=== PATIENT | male | born 1970 | race Caucasian/White ===

== ENCOUNTER 2024-05-20 16:56 | Inpatient (IN) | payer OTHER ==
[2024-05-20 17:22] VITALS: BMI 21.9
[2024-05-20] MEDS ORDERED: MAGNESIUM HYDROX 2400MG/30ML ORAL SUSPENSION 30 ML CUP PO PRN (17:42)
[2024-05-20] MEDS ORDERED: POLYETHYLENE GLYCOL (HEALTHYLAX) 3350 17 GM PACKET PO PRN (17:42)
[2024-05-20] MEDS ORDERED: BENZOCAINE/MENTHOL (CHLORASEPTIC ) LOZENGE MM PRN (17:42)
[2024-05-20] MEDS ORDERED: ONDANSETRON *ODT* 4 MG TABLET SL PRN (17:42)
[2024-05-20] MEDS ORDERED: NALOXONE (NARCAN) HCL 4 MG/0.1 ML SPRAY NS PRN (17:42)
[2024-05-20] MEDS ORDERED: IBUPROFEN 400 MG TABLET (FP) PO PRN (17:42)
[2024-05-20] MEDS ORDERED: P-EPHED 60MG/TRIPROLIDI 2.5MG TABLET PO PRN (17:42)
[2024-05-20] MEDS ORDERED: guaiFENesin 600 MG TABLET.ER (FP) PO PRN (17:42)
[2024-05-20] MEDS ORDERED: DICYCLOMINE HCL 10 MG CAPSULE PO PRN (17:42)
[2024-05-20] MEDS ORDERED: MAG HYDROX/AL HYDROX/SIMETH 30 ML UNIT-DOSE CUP PO PRN (17:42)
[2024-05-20] MEDS ORDERED: LOPERAMIDE HCL 2 MG CAPSULE PO PRN (17:42)
[2024-05-20] MEDS ORDERED: BISMUTH SUBSALICYLATE 524 MG/30 ML PO PRN (17:42)
[2024-05-20] MEDS ORDERED: BENZONATATE 200 MG CAPSULE PO PRN (17:42)
[2024-05-20] MEDS ORDERED: ACETAMINOPHEN 325 MG TABLET (FP) PO PRN (17:42)
[2024-05-20] MEDS: IBUPROFEN 600 MG TABLET (FP) PO PRN (19:05)
[2024-05-20] MEDS: methaDONE HCL 10 MG TABLET (FOR DETOX USE ONLY) PO PRN (19:06)
[2024-05-20] MEDS: METHOCARBAMOL 500 MG TABLET PO PRN (22:14)
[2024-05-20] MEDS: TETRAHYDROZOLINE HCL EYE DROPS OU PRN (22:14)
[2024-05-20] MEDS: THIAMINE 100 MG TABLET PO SCH (22:14)
[2024-05-20] MEDS: MELATONIN 5 MG TABLETS PO SCH (22:14)
[2024-05-21] MEDS: PRENATAL VITAMINS W/ FOLIC ACID TABLET (FP) PO SCH (09:53)
[2024-05-21 11:24] LABS: POTASSIUM 3.9 mmol/L (3.5-5.1)
[2024-05-21 11:28] LABS: HEMATOCRIT 35.7 % (35.4-49); HEMOGLOBIN 11.9 GM/dL (11.7-16.9); MCH 30.2 pg (25.7-33.7); MCHC 33.3 g/dl (32.0-35.9); MEAN CELL VOLUME 90.8 fl (80-96); MEAN PLT VOLUME 8.7 fl (7.5-11.1); PLATELET COUNT 181 10^3/uL (134-434); RBC 3.94 M/mm3 (4.00-5.60); WHITE BLOOD COUNT 8.4 K/mm3 (4.0-10.0)
[2024-05-21 11:32] LABS: BLOOD UREA NITROGEN 13.4 mg/dL (7-18); CALCIUM 8.9 mg/dL (8.5-10.1)
[2024-05-21 11:33] LABS: ALBUMIN 3.1 g/dl (3.4-5.0)
[2024-05-21 11:36] LABS: CREATININE 0.8 mg/dL (0.55-1.3)
[2024-05-21 11:37] LABS: BILIRUBIN,TOTAL 0.5 mg/dL (0.2-1)
[2024-05-21 11:38] LABS: TOT PROT 5.9 g/dl (6.4-8.2)
[2024-05-21] MEDS: methaDONE HCL 10 MG TABLET PO ONE (13:14)
[2024-05-21] MEDS: cloNIDine HCL 0.1 MG TABLET PO SCH (14:05)
[2024-05-21] MEDS ORDERED: methaDONE HCL 10 MG TABLET PO PRN (14:44)
[2024-05-21] MEDS: NICOTINE POLACRILEX 2 MG GUM BUC PRN (18:04)
[2024-05-22] MEDS ORDERED: methaDONE HCL 10 MG TABLET (FOR DETOX USE ONLY) PO ONE (10:00)
[2024-05-22] MEDS: cloNIDine HCL 0.1 MG TABLET PO PRN (10:31)
[2024-05-22] MEDS: methaDONE 40 MG, methaDONE 10 MG PO ONE (10:32)
[2024-05-23] MEDS ORDERED: methaDONE HCL 10 MG TABLET (FOR DETOX USE ONLY) PO ONE (10:00)
[2024-05-23] MEDS: methaDONE 40 MG, methaDONE 20 MG PO ONE (10:24)
[2024-05-23] MEDS: NICOTINE POLACRILEX 2 MG LOZENGE BC PRN (19:26)
[2024-05-23] MEDS: cloNIDine HCL 0.1 MG TABLET PO PRN (22:08)
[2024-05-24] MEDS: methaDONE 40 MG, methaDONE 30 MG PO ONE (09:46)
[2024-05-25] MEDS ORDERED: methaDONE HCL 40 MG DISPERSABLE TABLET PO ONE ×2 (10:00)
[2024-05-25] MEDS: NICOTINE 21 MG/24 HOURS TOPICAL PATCH TD SCH (10:22)
[2024-05-25] MEDS: ARTIFICIAL TEARS OPHTHALMIC DROPS OU PRN (22:16)
[2024-05-26 08:44] VITALS: BP 133/83; PULSE 90; RESP 18; TEMP 97.8
[2024-05-26] MEDS ORDERED: methaDONE HCL 40 MG DISPERSABLE TABLET PO ONE (10:00)
[2024-05-26] MEDS ORDERED: methaDONE 80 MG, methaDONE 10 MG PO ONE (10:00)
== END 2024-05-26 09:08 | disposition home or self-care (01) | DRG 773 ==
LOC: YASAS 16:56 → Y6N 17:55
PROVIDERS: ADMIT Allergy & Immunology; ATTEND Allergy & Immunology
PROC: HZ2ZZZZ Detoxification Services for Substance Abuse Treatment (ICD-10-PCS; principal; 2024-05-20)
DX: F11.23 Opioid dependence with withdrawal (principal); F17.210 Nicotine dependence, cigarettes, uncomplicated; F25.9 Schizoaffective disorder, unspecified; H04.121 Dry eye syndrome of right lacrimal gland; Z59.01 Sheltered homelessness
CPT/HCPCS: 36415; 80053; 80305; 80307; 85027; 86780; 93005; 93010